=== PATIENT | male | born 1995 | race Caucasian/White ===

== ENCOUNTER 2016-05-20 13:37 | Emergency (ER) | payer BC | END 2016-05-20 15:14 | disposition left against medical advice (07) | LOC: UCCORT 13:37 | DX: Z53.21 Procedure and treatment not carried out due to patient leaving prior to being seen by health care provider (principal); H57.8 Other specified disorders of eye and adnexa ==

== ENCOUNTER 2016-10-17 17:06 | Emergency (ER) | payer BC ==
[2016-10-17 17:29] VITALS: BP 115/73
--- NOTE | 2016-10-17 18:15 | UC ---
Respiratory Complaint HPI - HPI Summary HPI Summary: The patient comes in today for: 1. Nasal congestion, Sore throat, near-syncope: Onset: 1 day. Palliative/provocative: Air conditioning does not help. Quality: Left-sided congestion of the nose. Region: Nose. Severity: 0/10 Time: Constant. Associated symptoms: Near syncope: He had 2 episodes: 1st episode: 11:30 AM: He was working, sitting down at his desk. He suddenly felt like he was going to faint. He took a couple deep breaths and then forgot about it. 2nd episode: 13:45 PM: He was standing at times and also sitting at his desk. He took a couple deep breaths and again forgot about it. Rhinitis: yellow. Fevers: None. Sinus pressure: Maxillary. Cough: None. Treatment: He has taken nasal decongestant pills. Sneezin-8 times today. Itchy nose: None. * - History of Current Complaint Chief Complaint: UCRespiratory Stated Complaint: COLD SYMPTOMS Time Seen by Provider: 10/17/16 18:06 Hx Obtained From: Patient - Allergies/Home Medications Allergies/Adverse Reactions: Allergies Allergy/AdvReac Type Severity Reaction Status Date / Time Salicylic Acid Allergy Rash Verified 10/17/16 17:29 [From Acne Medicated Gel] Home Medications: Home Medications Phenylephrine HCl (Oral) [Nasal Decongestant] 10 mg PO PRN 10/17/16 [History] PMH/Surg Hx/FS Hx/Imm Hx Previously Healthy: Yes - Surgical History Surgical History: None Surgery Procedure, Year, and Place: WISDOM TEETH EXTRACTION - Family History Known Family History: Positive: Hypertension Negative: Diabetes - Social History Occupation: Employed Full-time Alcohol Use: Occasionally Substance Use Type: Marijuana Substance Use Comment - Amount & Last Used: rare usage Smoking Status (MU): Never Smoked Tobacco - Immunization History Most Recent Influenza Vaccination: no Review of Systems Constitutional: Negative Skin: Negative Eyes: Negative ENT: Sore Throat, Nasal Discharge Respiratory: Cough Gastrointestinal: Negative Genitourinary: Negative All Other Systems Reviewed And Are Negative: Yes Physical Exam Triage Information Reviewed: Yes Appearance: Well-Appearing, No Pain Distress, Well-Nourished Vital Signs: Initial Vital Signs Temp 99.8 F 10/17/16 17:26 Pulse 84 10/17/16 17:26 Resp 16 10/17/16 17:26 BP 115/73 10/17/16 17:26 Pulse Ox 100 10/17/16 17:26 Vital Signs Reviewed: Yes Eyes: Positive: Conjunctiva Clear. Negative: Discharge ENT: Positive: Hearing grossly normal, Nasal congestion - Right nostril--no blockage. Left nostril--there is no open passage. Swollen mucosa., Other: - Ears: TM not seen on the left due to cerumen. There was no canal erythema or edema The right TM was rodriguez and translucent.. Negative: Pharyngeal erythema, Tonsillar swelling, Tonsillar exudate Dental: Negative: Gross Decay/Caries @, Dental Fracture @ Neck: Positive: Supple, Nontender, No Lymphadenopathy. Negative: Nuchal Rigidity Respiratory: Positive: Chest non-tender, Lungs clear, No respiratory distress, No accessory muscle use. Negative: Crackles, Wheezing Cardiovascular: Positive: RRR, No Murmur Abdomen Description: Positive: Nontender, No Organomegaly, Soft. Negative: Distended, Guarding Musculoskeletal: Positive: Strength Intact, ROM Intact, No Edema Neurological: Positive: Alert, Muscle Tone Normal Psychological: Positive: Age Appropriate Behavior, Consolable Skin: Negative: rashes, breakdown UC Diagnostic Evaluation - Laboratory O2 Sat by Pulse Oximetry: 100 Respiratory Course/Dx - Differential Dx/Diagnosis Differential Diagnosis/HQI/PQRI: Asthma, Laryngitis, Sinusitis Provider Diagnoses: Sinusitis Discharge - Discharge Plan Condition: Stable Disposition: HOME Patient Education Materials: Sinusitis (ED) Referrals: Lc Babin MD [Primary Care Provider] - 1 Week (Please see your primary care provider early next week to see how well you are doing. If you get worse, please be seen sooner. )
== END 2016-10-17 18:41 | disposition home or self-care (01) ==
LOC: UCCORT 17:06
DX: J32.9 Chronic sinusitis, unspecified (principal)
CPT/HCPCS: 99212; G0463

== ENCOUNTER 2016-12-12 19:55 | Emergency (ER) | payer BC ==
[2016-12-12 20:01] VITALS: BP 114/71
--- NOTE | 2016-12-12 20:39 | UC ---
Shortness of Breath HPI - HPI Summary HPI Summary: 21 yo male with one week hx of dyspnea/anxiety has used his inhaler with no relief unsure if it is due to mold/anxiety or other - History of Current Complaint Chief Complaint: UCRespiratory Stated Complaint: SOB Time Seen by Provider: 12/12/16 20:12 Hx Obtained From: Patient Onset/Duration: Gradual Onset, Lasting Days Timing: Intermittent Episodes Lasting: - hours Dyspnea At: Rest Aggrevating Factors: Nothing - being at home/although episodes occur at work too Alleviating Factors: Nothing Related History: Similar Episode - Allergy/Home Medications Allergies/Adverse Reactions: Allergies Allergy/AdvReac Type Severity Reaction Status Date / Time Salicylic Acid Allergy Rash Verified 12/12/16 20:01 [From Acne Medicated Gel] Home Medications: Home Medications Albuterol HFA INHALER* [Ventolin HFA Inhaler*] 2 puff INH Q4H PRN 12/12/16 [ History Confirmed 12/12/16] PMH/Surg Hx/FS Hx/Imm Hx Previously Healthy: Yes - Surgical History Surgical History: None Surgery Procedure, Year, and Place: WISDOM TEETH EXTRACTION - Family History Known Family History: Positive: Hypertension Negative: Diabetes - Social History Alcohol Use: Occasionally Substance Use Type: Marijuana Substance Use Comment - Amount & Last Used: rare usage Smoking Status (MU): Never Smoked Tobacco - Immunization History Most Recent Influenza Vaccination: no Review of Systems Constitutional: Negative Skin: Negative Eyes: Negative ENT: Negative Respiratory: Shortness Of Breath Cardiovascular: Negative Gastrointestinal: Negative Genitourinary: Negative Motor: Negative Neurovascular: Negative Musculoskeletal: Negative Neurological: Negative Psychological: Anxious All Other Systems Reviewed And Are Negative: Yes Physical Exam Triage Information Reviewed: Yes Appearance: Well-Appearing, No Pain Distress, Well-Nourished Vital Signs: Initial Vital Signs Temp 99.3 F 12/12/16 19:58 Pulse 78 12/12/16 19:58 Resp 16 12/12/16 19:58 BP 114/71 12/12/16 19:58 Pulse Ox 100 12/12/16 19:58 Vital Signs Reviewed: Yes Eyes: Positive: Conjunctiva Clear ENT: Positive: Hearing grossly normal, TMs normal. Negative: Nasal congestion, Nasal drainage, Tonsillar exudate, Trismus, Muffled/hoarse voice Neck: Positive: Supple, Nontender, No Lymphadenopathy Respiratory: Positive: Chest non-tender, Lungs clear, Normal breath sounds, No respiratory distress, No accessory muscle use Cardiovascular: Positive: RRR, No Murmur. Negative: Tachycardia, Bradycardia Abdomen Description: Positive: Nontender, No Organomegaly. Negative: Distended , Guarding Musculoskeletal: Positive: ROM Intact, No Edema Neurological: Positive: Alert Psychological Exam: Normal Skin Exam: Normal Shortness of Breath Dx - Course Course Of Treatment: lungs clear/PEFR's outstanding/heart exam- unable to illicit a murmur - Differential Dx/Diagnosis Provider Diagnoses: dyspnea of uncertain cause. ? anxiety Discharge - Discharge Plan Condition: Stable Disposition: HOME Prescriptions: hydrOXYzine HCL TAB* [Atarax 25 MG TAB*] 25 mg PO QID PRN #20 tab PRN Reason: Anxiety Patient Education Materials: Dyspnea (ED), Anxiety (ED) Referrals: Gregory Mari MD [Medical Doctor] - (associate entertainment editor/you can ask for the [place] office #) Lc Babin MD [Primary Care Provider] - 1 Week Additional Instructions: recheck with your MD consider allergy follow up
== END 2016-12-12 20:49 | disposition home or self-care (01) ==
LOC: UCCORT 19:55
DX: R06.00 Dyspnea, unspecified (principal); F41.9 Anxiety disorder, unspecified
CPT/HCPCS: 99212; G0463